=== PATIENT | female | born 1945 | race Caucasian/White ===

== ENCOUNTER → 2017-08-01 | Outpatient (CLI) | payer MEDICARE | END | disposition home or self-care (01) | LOC: CFH 13:00 | PROVIDERS: ATTEND Internal Medicine Cardiovascular Disease | DX: I08.0 Rheumatic disorders of both mitral and aortic valves (principal); E11.9 Type 2 diabetes mellitus without complications; I10 Essential (primary) hypertension; E78.5 Hyperlipidemia, unspecified | CPT/HCPCS: 93306 ==

== ENCOUNTER → 2017-12-06 | Outpatient (CLI) | payer MEDICARE | END | disposition home or self-care (01) | LOC: CFH 13:47 | PROVIDERS: ATTEND Nurse Practitioner Family | DX: Z12.31 Encounter for screening mammogram for malignant neoplasm of breast (principal); Z80.3 Family history of malignant neoplasm of breast | CPT/HCPCS: 77067 ==

== ENCOUNTER → 2018-08-03 | Outpatient (CLI) | payer MEDICARE | END | disposition home or self-care (01) | LOC: CFH 09:59 | PROVIDERS: ATTEND Internal Medicine | DX: Z13.820 Encounter for screening for osteoporosis (principal); M85.88 Other specified disorders of bone density and structure, other site; M81.0 Age-related osteoporosis without current pathological fracture | CPT/HCPCS: 77080 ==

== ENCOUNTER 2019-03-20 14:44 | Outpatient (CLI) | payer MEDICARE | END 2019-03-20 23:59 | disposition home or self-care (01) | LOC: CFH 14:44 | PROVIDERS: ATTEND Internal Medicine | DX: J98.4 Other disorders of lung (principal); J94.8 Other specified pleural conditions; M06.9 Rheumatoid arthritis, unspecified; Z95.2 Presence of prosthetic heart valve | CPT/HCPCS: 71046 ==

== ENCOUNTER 2019-08-06 11:33 | Emergency (ER) | payer MEDICARE ==
[~2019-08-06] VITALS: Ht 160 cm; Wt 62.1 kg
--- NOTE | 2019-08-06 12:15 | NUR ---
DIGITAL MARKETING SPECIALIST: PT AMBULATORY WITH STEADY GAIT TO ROOM AT THIS TIME. SON WITH PT. ERLINDA
[2019-08-06] MEDS ORDERED: SODIUM CHLORIDE 0.9% 1,000 ML IV ONE (12:25)
[2019-08-06] MEDS ORDERED: SODIUM CHLORIDE FLUSH 10ML SYR IVF ONE (12:30)
[2019-08-06] MEDS ORDERED: BENZONATATE 100 MG CAPSULE PO ONE (12:30)
[2019-08-06] MEDS ORDERED: ALBUTEROL SULFATE 2.5 MG/3 ML NPPB ONE (12:30)
[2019-08-06] MEDS ORDERED: ALBUTEROL SULFATE 2.5 MG/3 ML ONE (12:40)
--- NOTE | 2019-08-06 12:44 | NUR ---
PT HERE WITH C/O COUGH X 1 WEEK. PT STATES NON-PRODUCTIVE AND CONSTANT. PT AAO X 4, NAD, ROOM AIR, CALL LIGHT WITHIN REACH. PT DRESSED IN GOWN AND ATTACHED TO MONITOR. LAB AT BEDSIDE FOR BLOOD CULTURE X 1 AND SECOND SET DRAWN BY THIS RN AFTER STARTING PIV. CXR COMPLETED.
--- NOTE | 2019-08-06 12:45 | NUR ---
PER , PT OK FOR PO FLUIDS.
[2019-08-06 12:48] LABS: RAPID INFLUENZA A Negative (Negative); RAPID INFLUENZA B Negative (Negative)
[2019-08-06 12:50] LABS: BASOPHILS # (AUTO) 0.02 x10^3/uL (0-0.1); BASOPHILS % (AUTO) 0 % (0-1); EOSINOPHILS % (AUTO) 0 % (1-7); LYMPHOCYTES # (AUTO) 0.43 x10^3/uL (1-3.4); LYMPHOCYTES % (AUTO) 6 % (22-44); MD NO; MEAN CORPUSCULAR HEMOGLOBIN 32.2 pg (27.0-34.8); MEAN CORPUSCULAR VOLUME 94.9 fL (80-100); MEAN PLATELET VOLUME 8.7 fL (7.4-10.4); MONOCYTES # (AUTO) 0.56 x10^3/uL (0.2-0.8); MONOCYTES % (AUTO) 8 % (2-9); NEUTROPHILS # (AUTO) 6.05 x10^3/uL (1.8-6.8); NEUTROPHILS % (AUTO) 86 % (42-75); PLATELET COUNT 105 x10^3/uL (130-400); RED BLOOD COUNT 4.12 x10^6/uL (3.82-5.3); RED CELL DISTRIBUTION WIDTH 16.2 % (9.6-15.2)
--- NOTE | 2019-08-06 12:50 | NUR ---
RT AT BEDSIDE.
[2019-08-06 12:59] LABS: ALBUMIN 3.4 g/dL (3.4-5.0); ANION GAP 10 mmol/L (5-15); CALCIUM 8.8 mg/dL (8.5-10.1); CHLORIDE 104 mmol/L (98-107)
[2019-08-06] MEDS ORDERED: DEXAMETHASONE 4 MG/ML, 1ML IVPush ONE (13:00)
[2019-08-06] MEDS ORDERED: CEFTRIAXONE PMX 1GM/50ML 50 ML IV ONE (13:00)
[2019-08-06] MEDS ORDERED: DOXYCYCLINE 100MG TABLET PO ONE (13:00)
[2019-08-06 13:02] LABS: ALANINE AMINOTRANSFERASE 26 U/L (12-78); ALKALINE PHOSPHATASE 82 U/L (45-117); BILIRUBIN,TOTAL 0.9 mg/dL (0.2-1.0); CREATININE 1.31 mg/dL (0.55-1.02); TOTAL PROTEIN 9.5 g/dL (6.4-8.2)
[2019-08-06] MEDS ORDERED: DEXAMETHASONE 4 MG/ML, 1ML ONE (13:03)
[2019-08-06] MEDS ORDERED: DOXYCYCLINE 100MG TABLET ONE (13:03)
[2019-08-06] MEDS ORDERED: BENZONATATE 100 MG CAPSULE ONE (13:03)
[2019-08-06] MEDS ORDERED: CEFTRIAXONE PMX 1GM/50ML 50 ML ONE (13:03)
--- NOTE | 2019-08-06 13:12 | NUR ---
PT MEDICATED PER ORDERS.
[2019-08-06] MEDS ORDERED: SODIUM CHLORIDE 0.9%, 500ML IVBOLUS ONE (13:30)
[2019-08-06 13:33] VITALS: BP 132/64
--- NOTE | 2019-08-06 14:06 | NUR ---
Patient/Caregiver given discharge instructions and they have confirmed that they understand the instructions. Patient ambulatory with steady gait. PIV REMOVED TIP INTACT.
== END 2019-08-06 14:08 | disposition home or self-care (01) ==
LOC: ED 14:00
DX: J15.9 Unspecified bacterial pneumonia (principal); E11.9 Type 2 diabetes mellitus without complications
CPT/HCPCS: 36415; 71045; 80053; 83605; 84145; 85025; 87040; 87400; 94640; 96365; 96375; 99284; J0696; J1100; J7030; J7040; J7613